=== PATIENT | female | born 1985 | race Caucasian/White ===

== ENCOUNTER → 2020-04-30 09:28 | Outpatient (CLI) | payer OTHER, SELFPAY ==
[2020-04-30 10:21] LABS: Add Manual Diff / Slide Review NO; Basophils Absolute Auto 0 /uL (0-100); Basophils Percent Auto 0.7 % (0-2); Eosinophils Absolute Auto 100 /uL (0-450); Hematocrit 39.3 % (36-46); Lymphocytes Absolute Auto 2200 /uL (1100-4500); Lymphocytes Percent Auto 32.9 % (25-40); Mean Corpuscular HGB Conc 33.2 % (30-36); Mean Corpuscular Hemoglobin 28.4 PG (26-34); Mean Corpuscular Volume 85.5 fL (80-100); Monocytes Absolute Auto 500 /uL (0-900); Monocytes Percent Auto 7.2 % (3-14); Neutrophils Absolute Auto 3800 /uL (1500-7000); Neutrophils Percent Auto 57.2 % (50-75); Platelet Count 252 X10^3/uL (150-400); Red Blood Cell Count 4.59 X10^6/uL (4.0-5.2); Red Cell Distribution Width 13.8 % (11.6-14.8); White Blood Cell Count 6.7 X10^3/uL (4.5-11.0)
[2020-04-30 10:39] LABS: Alanine Aminotransferase 42 IU/L (<35); Albumin 4.7 g/dL (3.5-5.0); Albumin Globulin Ratio 1.6 (1.0-2.8); Alkaline Phosphatase 113 U/L (38-126); Aspartate Aminotransferase 32 IU/L (14-36); BUN Creatinine Ratio 16.9 (6-22); Bilirubin Total 0.4 mg/dL (0.2-1.3); Blood Urea Nitrogen 14 mg/dL (7-17); Calcium 9.6 mg/dL (8.4-10.2); Carbon Dioxide 27 mmol/L (22-32); Chloride 105 mmol/L (98-107); Estimated Glomerular Filt Rate > 60.0 mL/min (>60); Glucose 97 mg/dL (70-100); HEMOLYSIS < 15 (0-50); Lipase 48 U/L (23-300); Potassium 4.5 mmol/L (3.4-5.1); Sodium 139 mmol/L (137-145); Total Protein 7.7 g/dL (6.3-8.2)
[2020-05-15 11:00] LABS: Urea Breath Test >18YRS NEGATIVE
== END ==
PROVIDERS: PCP Registered Nurse; Referring Provider Registered Nurse; Visit Provider Registered Nurse
DX: R10.9 Unspecified abdominal pain (principal); R14.2 Eructation; R53.83 Other fatigue
CPT/HCPCS: 36415; 80053; 83013; 83690; 85025

== ENCOUNTER → 2020-05-05 07:33 | Outpatient (CLI) | payer OTHER, SELFPAY ==
--- NOTE | 2020-05-05 07:34 | DI.US.S_ITS ---
PROCEDURE: US ABDOMEN COMPLETE INDICATIONS: PAIN TECHNIQUE: Real-time scanning was performed of the abdominal and retroperitoneal organs, with image documentation. COMPARISON: None. FINDINGS: Liver: Liver is normal in size and homogeneous in echotexture. Gallbladder: No gallstones identified. Normal gallbladder wall. No pericholecystic fluid. Negative sonographic Wilson sign. Biliary ducts: Intrahepatic bile ducts are non-dilated. Extrahepatic bile duct caliber measures 4.0 mm. Normal is 6-7 mm or less in diameter, or 10 mm or less post-cholecystectomy. Pancreas: Visualized portions of the pancreas are sonographically normal. Spleen: Spleen is normal in size and homogeneous in echotexture. Kidneys: Kidneys are normal in size and echotexture. Right kidney measures 10.8 cm long; left kidney measures 10.8 cm long. No hydronephrosis or nephrolithiasis. No solid masses. Aorta: Visualized aorta is normal in caliber at less than 3 cm. Iliacs: Proximal common iliac arteries are normal in caliber at less than 2.5 cm. IVC: Intrahepatic inferior vena cava is patent. Miscellaneous: No free abdominal fluid. IMPRESSION: No source for abdominal pain identified. Dictated by: Gerardo Perez [facility] Interpreted: Yobani Bateman MD on 05/05/2020 at 10:28 Approved by: Yobani Bateman M.D. on 05/05/2020 at 15:45
== END ==
PROVIDERS: PCP Registered Nurse; Referring Provider Registered Nurse; Visit Provider Registered Nurse
DX: R10.9 Unspecified abdominal pain (principal); R14.2 Eructation
CPT/HCPCS: 76700

== ENCOUNTER 2022-01-30 09:58 | Emergency (ER) | payer OTHER, SELFPAY ==
[2022-01-30] VITALS (15 sets, daily range): BP systolic 127–165; BP diastolic 62–86; PULSE 91–111; RESP 11–22; TEMP 37.7; O2SAT 97–100; BMI 40.0
--- NOTE | 2022-01-30 10:24 | DI.RAD.S_ITS ---
PROCEDURE: XR CHEST 2V INDICATIONS: shortness of breath TECHNIQUE: 2 views of the chest were acquired. COMPARISON: None. FINDINGS: Surgical changes and devices: None. Lungs and pleura: An incomplete inspiratory result is noted, causing a crowded appearance to the lung markings. No focal infiltrates are seen. Mild generalized interstitial prominence. No pneumothorax or significant pleural effusions are seen. Mediastinum: Mediastinal contours are normal. Heart size is normal. Bones and chest wall: No suspicious bony abnormalities. Soft tissues appear unremarkable. IMPRESSION: Mild generalized interstitial prominence is seen, which is likely artifactual, given the low lung volumes. However, differential diagnosis includes mild pulmonary edema and atypical/viral infiltrate. If clinically appropriate, a short-term followup chest series (with PA and lateral views) performed in deep inspiration is suggested for further evaluation. Dictated by: Ray Bass M.D. on 01/30/2022 at 9:59 Approved by: Ray Bass M.D. on 01/30/2022 at 10:01
[2022-01-30] MEDS: SODIUM CHLORIDE 0.9% 1,000 ML 1000 ML IV (10:30)
[2022-01-30 10:41] LABS: Add Manual Diff / Slide Review NO; Basophils Absolute Auto 0 /uL (0-100); Basophils Percent Auto 0.6 % (0-2); Eosinophils Absolute Auto 100 /uL (0-450); Eosinophils Percent Auto 1.9 % (2-4); Hematocrit 28.8 % (36-46); Hemoglobin 9.2 g/dL (12.0-16.0); Lymphocytes Absolute Auto 1400 /uL (1100-4500); Lymphocytes Percent Auto 19.9 % (25-40); Mean Corpuscular HGB Conc 32.1 % (30-36); Mean Corpuscular Hemoglobin 24.1 PG (26-34); Monocytes Absolute Auto 500 /uL (0-900); Monocytes Percent Auto 7.4 % (3-14); Neutrophils Absolute Auto 4900 /uL (1500-7000); Neutrophils Percent Auto 70.2 % (50-75); Platelet Count 341 X10^3/uL (150-400); Red Blood Cell Count 3.84 X10^6/uL (4.0-5.2); Red Cell Distribution Width 15.1 % (11.6-14.8)
[2022-01-30 11:00] LABS: Alanine Aminotransferase 27 IU/L (<35); Albumin 4.3 g/dL (3.5-5.0); Albumin Globulin Ratio 1.2 (1.0-2.8); Alkaline Phosphatase 105 U/L (38-126); Aspartate Aminotransferase 31 IU/L (14-36); BUN Creatinine Ratio 10.5 (6-22); Bilirubin Total 0.2 mg/dL (0.2-1.3); Blood Urea Nitrogen 8 mg/dL (7-17); Calcium 8.7 mg/dL (8.4-10.2); Carbon Dioxide 26 mmol/L (22-32); Chloride 104 mmol/L (98-107); Estimated Glomerular Filt Rate > 60 mL/min (>60); Globulin 3.6 g/dL (1.7-4.1); Glucose 111 mg/dL (70-100); HEMOLYSIS < 15 (0-50); Lipase 40 U/L (23-300); Potassium 3.7 mmol/L (3.4-5.1); Sodium 136 mmol/L (137-145); Total Protein 7.9 g/dL (6.3-8.2)
--- NOTE | 2022-01-30 11:01 | ED_ITS ---
HPI - SOB/Dyspnea General Chief Complaint: Shortness of Breath/Dyspnea Stated Complaint: cough getting worse exposed to walking pneu Time Seen by Provider: 01/30/22 10:50 Source: patient Mode of arrival: Ambulatory Limitations: no limitations History of Present Illness HPI Narrative: 36-year-old female who has no past medical history presenting today with 3 days of body aches cough and fever. She says last week she was exposed to somebody who had walking pneumonia. Now she overall does not feel good. She gets conversational dyspnea. She starts coughing nonproductive cough. She has not traveled anywhere she has some mild chest tightness. She overall does not feel well. He has had low-grade fever of 100. She is mildly tachycardic here. Related Data Previous Rx's Medication Instructions Recorded albuterol sulfate 90 mcg/actuation 2 puff INHALATION Q4-6H PRN #8.5 01/30/22 aerosol inhaler gram Allergies Allergy/AdvReac Type Severity Reaction Status Date / Time No Known Drug Allergies Allergy Verified 04/30/20 09:05 Review of Systems Review of Systems Narrative: GENERAL: See HPI HEENT: Denies sinus pain, ear pain, sore throat, difficulty swallowing, neck pain RESPIRATORY: See HPI CARDIOVASCULAR: Denies chest pain, palpitations, orthopnea, edema GASTROINTESTINAL: Denies nausea, vomiting, abdominal pain, diarrhea, constipation, melena. : Denies dysuria, frequency, incontinence, hematuria, urinary retention, flank pain. MUSCULOSKELETAL: Denies weakness, joint pain, or bony pain SKIN: No rash, no erythema, no pruritus NEUROLOGIC: Denies weakness, dizziness, headache, numbness, change in speech, confusion PSYCHIATRIC: No concerning psychosocial issues. 12 point review of systems is negative except for those stated above and HPI Patient History Social History Smoking Status: Never smoker Smoking Status: Never smoker Substance Use Type: does not use Exam Initial Vital Signs Initial Vital Signs: Vital Signs Temperature 99.8 F H 01/30/22 10:07 Pulse Rate 111 H 01/30/22 10:07 Respiratory Rate 20 01/30/22 10:07 Blood Pressure 132/82 01/30/22 10:07 Pulse Oximetry 98 01/30/22 10:07 GENERAL: Alert 36-year-old female appears to not feel well HEENT: Head atraumatic,EOMI, pupils reactive, face symmetric, moist mucous membranes CARDIOVASCULAR: Mildly tachycardic without murmur RESPIRATORY: Breath sounds equal bilaterally, no wheezes rales or rhonchi. ABDOMEN: Soft, nontender. Normoactive bowel sounds all 4 quadrants. No guardi ng or rebound. EXTREMITIES: Normal range of motion, no clubbing or edema. Neurovascularly intact NEUROLOGICAL: Alert and oriented x4.Normal gait and speech. Cranial nerves II through XII grossly intact. SKIN: Warm, dry, no laceration, no petechiae, no rashes or lesions. Course Orders Ordered: Discontinued Medications Albuterol/Ipratropium (Albuterol/Ipratropium 3 Ml Ampul) 3 ml INH NOW ONE Stop: 01/30/22 11:46 Last Admin: 01/30/22 12:01 Dose: 3 ml Documented by: YEIMY Sodium Chloride (Normal Saline 0.9%) 1,000 mls @ 1,000 mls/hr IV BOLUS ONE Stop: 01/30/22 11:23 Last Infusion: 01/30/22 11:51 Dose: 0 mls/hr Documented by: Admin: 01/30/22 10:30 Dose: 1,000 mls/hr Documented by: BRIAN Vital Signs Vital signs: Vital Signs - 8 hr 01/30/22 10:07 01/30/22 10:11 01/30/22 10:12 Temperature 99.8 F H Pulse Rate 111 H 110 H Respiratory Rate 20 22 Blood Pressure 132/82 132/82 Pulse Oximetry 98 98 98 01/30/22 10:30 01/30/22 11:02 01/30/22 11:04 Temperature 99.8 F H Pulse Rate 111 H 106 H 106 H Respiratory Rate 22 17 Blood Pressure 127/76 165/86 H Pulse Oximetry 97 99 01/30/22 11:30 01/30/22 11:31 01/30/22 12:00 Temperature Pulse Rate 91 H 94 H 92 H Respiratory Rate 17 11 L Blood Pressure 128/62 129/70 Pulse Oximetry 98 99 99 01/30/22 12:09 01/30/22 12:30 01/30/22 12:51 Temperature Pulse Rate 92 H 109 H 105 H Respiratory Rate 18 14 14 Blood Pressure 132/72 145/85 H Pulse Oximetry 98 98 97 01/30/22 13:00 01/30/22 13:30 01/30/22 14:00 Temperature Pulse Rate 102 H 96 H 96 H Respiratory Rate 14 Blood Pressure 147/84 H 152/80 H 156/75 H Pulse Oximetry 99 99 100 MDM - SOB/Dyspnea Lab Data Result diagrams: 01/30/22 10:27 01/30/22 10:27 Labs: Lab Results 01/30/22 01/30/22 01/30/22 Range/Units 10:26 10:27 10:27 WBC 7.0 (4.5-11.0) X10^3/uL RBC 3.84 L (4.0-5.2) X10^6/uL Hgb 9.2 L (12.0-16.0) g/dL Hct 28.8 L (36-46) % MCV 75.0 L (80-100) fL MCH 24.1 L (26-34) PG MCHC 32.1 (30-36) % RDW 15.1 H (11.6-14.8) % Plt Count 341 (150-400) X10^3/uL Neut % (Auto) 70.2 (50-75) % Lymph % (Auto) 19.9 L (25-40) % [place] % (Auto) 7.4 (3-14) % Eos % (Auto) 1.9 L (2-4) % Baso % (Auto) 0.6 (0-2) % Neut # (Auto) 4900 (2994-4277) /uL Lymph # (Auto) 1400 (8854-1705) /uL [place] # (Auto) 500 (0-900) /uL Eos # (Auto) 100 (0-450) /uL Baso # (Auto) 0 (0-100) /uL Sodium 136 L (137-145) mmol/L Potassium 3.7 (3.4-5.1) mmol/L Chloride 104 (98-107) mmol/L Carbon Dioxide 26 (22-32) mmol/L BUN 8 (7-17) mg/dL Creatinine 0.76 (0.52-1.04) mg/dL Estimated GFR > 60 (>60) mL/min BUN/Creatinine Ratio 10.5 (6-22) Glucose 111 H (70-100) mg/dL Lactate (0.7-2.1) mmol/L Calcium 8.7 (8.4-10.2) mg/dL Total Bilirubin 0.2 (0.2-1.3) mg/dL AST 31 (14-36) IU/L ALT 27 (<35) IU/L Alkaline Phosphatase 105 (38-126) U/L NT-Pro-B Natriuret Pep (<125) pg/mL Total Protein 7.9 (6.3-8.2) g/dL Albumin 4.3 (3.5-5.0) g/dL Globulin 3.6 (1.7-4.1) g/dL Albumin/Globulin Ratio 1.2 (1.0-2.8) Lipase 40 (23-300) U/L Procalcitonin 0.07 (<0.5) ng/mL Urine RBC (0-5/HPF) Urine WBC (0-5/HPF) Ur Squamous Epith Cells (0-5/HPF) Amorphous Sediment Urine Bacteria (None) Urine Mucus (Negative) Ur Culture Indicated? Urine Test (Negative) Chlamy pneumoniae PCR Not detected (Not Detect) Adenovirus (PCR) Not detected (Not Detect) B. pertussis DNA (PCR) Not detected (Not Detecte) B.parapertussis DNA PCR Not detected (Not Detecte) Coronavirus OC43 (PCR) Not detected (Not Detect) Coronavirus HKU1 (PCR) Not detected (Not Detect) Coronavirus 229E (PCR) Not detected (Not Detect) SARS-CoV-2 (PCR) Not detected (Not Detecte) Coronavirus NL63 (PCR) Not detected (Not Detect) Human Metapneumovir PCR Detected H (Not Detect) Influenza Type A (PCR) Not detected (Not Detect) Influenza Type B (PCR) Not detected (Not Detect) M. pneumoniae (PCR) Not detected (Not Detect) Parainfluenza 1 (PCR) Not detected (Not Detect) Parainfluenza 2 (PCR) Not detected (Not Detect) Parainfluenza 3 (PCR) Not detected (Not Detect) Parainfluenza 4 (PCR) Not detected (Not Detect) RSV (PCR) Not detected (Not Detect) Entero/Rhino (PCR) Not detected (Not Detect) 01/30/22 01/30/22 01/30/22 Range/Units 10:27 10:27 11:08 WBC (4.5-11.0) X10^3/uL RBC (4.0-5.2) X10^6/uL Hgb (12.0-16.0) g/dL Hct (36-46) % MCV (80-100) fL MCH (26-34) PG MCHC (30-36) % RDW (11.6-14.8) % Plt Count (150-400) X10^3/uL Neut % (Auto) (50-75) % Lymph % (Auto) (25-40) % [place] % (Auto) (3-14) % Eos % (Auto) (2-4) % Baso % (Auto) (0-2) % Neut # (Auto) (6087-3952) /uL Lymph # (Auto) (1441-7893) /uL [place] # (Auto) (0-900) /uL Eos # (Auto) (0-450) /uL Baso # (Auto) (0-100) /uL Sodium (137-145) mmol/L Potassium (3.4-5.1) mmol/L Chloride (98-107) mmol/L Carbon Dioxide (22-32) mmol/L BUN (7-17) mg/dL Creatinine (0.52-1.04) mg/dL Estimated GFR (>60) mL/min BUN/Creatinine Ratio (6-22) Glucose (70-100) mg/dL Lactate 1.2 (0.7-2.1) mmol/L Calcium (8.4-10.2) mg/dL Total Bilirubin (0.2-1.3) mg/dL AST (14-36) IU/L ALT (<35) IU/L Alkaline Phosphatase (38-126) U/L NT-Pro-B Natriuret Pep 37 (<125) pg/mL Total Protein (6.3-8.2) g/dL Albumin (3.5-5.0) g/dL Globulin (1.7-4.1) g/dL Albumin/Globulin Ratio (1.0-2.8) Lipase (23-300) U/L Procalcitonin (<0.5) ng/mL Urine RBC 10-30/hpf H (0-5/HPF) Urine WBC 0-1/hpf (0-5/HPF) Ur Squamous Epith Cells 1-5 /hpf (0-5/HPF) Amorphous Sediment 1+ Urine Bacteria Few (2-10) H (None) Urine Mucus 1+ H (Negative) Ur Culture Indicated? Specimen cultured Urine Test (Negative) Chlamy pneumoniae PCR (Not Detect) Adenovirus (PCR) (Not Detect) B. pertussis DNA (PCR) (Not Detecte) B.parapertussis DNA PCR (Not Detecte) Coronavirus OC43 (PCR) (Not Detect) Coronavirus HKU1 (PCR) (Not Detect) Coronavirus 229E (PCR) (Not Detect) SARS-CoV-2 (PCR) (Not Detecte) Coronavirus NL63 (PCR) (Not Detect) Human Metapneumovir PCR (Not Detect) Influenza Type A (PCR) (Not Detect) Influenza Type B (PCR) (Not Detect) M. pneumoniae (PCR) (Not Detect) Parainfluenza 1 (PCR) (Not Detect) Parainfluenza 2 (PCR) (Not Detect) Parainfluenza 3 (PCR) (Not Detect) Parainfluenza 4 (PCR) (Not Detect) RSV (PCR) (Not Detect) Entero/Rhino (PCR) (Not Detect) 01/30/22 Range/Units 11:09 WBC (4.5-11.0) X10^3/uL RBC (4.0-5.2) X10^6/uL Hgb (12.0-16.0) g/dL Hct (36-46) % MCV (80-100) fL MCH (26-34) PG MCHC (30-36) % RDW (11.6-14.8) % Plt Count (150-400) X10^3/uL Neut % (Auto) (50-75) % Lymph % (Auto) (25-40) % [place] % (Auto) (3-14) % Eos % (Auto) (2-4) % Baso % (Auto) (0-2) % Neut # (Auto) (2114-1048) /uL Lymph # (Auto) (9334-5554) /uL [place] # (Auto) (0-900) /uL Eos # (Auto) (0-450) /uL Baso # (Auto) (0-100) /uL Sodium (137-145) mmol/L Potassium (3.4-5.1) mmol/L Chloride (98-107) mmol/L Carbon Dioxide (22-32) mmol/L BUN (7-17) mg/dL Creatinine (0.52-1.04) mg/dL Estimated GFR (>60) mL/min BUN/Creatinine Ratio (6-22) Glucose (70-100) mg/dL Lactate (0.7-2.1) mmol/L Calcium (8.4-10.2) mg/dL Total Bilirubin (0.2-1.3) mg/dL AST (14-36) IU/L ALT (<35) IU/L Alkaline Phosphatase (38-126) U/L NT-Pro-B Natriuret Pep (<125) pg/mL Total Protein (6.3-8.2) g/dL Albumin (3.5-5.0) g/dL Globulin (1.7-4.1) g/dL Albumin/Globulin Ratio (1.0-2.8) Lipase (23-300) U/L Procalcitonin (<0.5) ng/mL Urine RBC (0-5/HPF) Urine WBC (0-5/HPF) Ur Squamous Epith Cells (0-5/HPF) Amorphous Sediment Urine Bacteria (None) Urine Mucus (Negative) Ur Culture Indicated? Urine Test Negative (Negative) Chlamy pneumoniae PCR (Not Detect) Adenovirus (PCR) (Not Detect) B. pertussis DNA (PCR) (Not Detecte) B.parapertussis DNA PCR (Not Detecte) Coronavirus OC43 (PCR) (Not Detect) Coronavirus HKU1 (PCR) (Not Detect) Coronavirus 229E (PCR) (Not Detect) SARS-CoV-2 (PCR) (Not Detecte) Coronavirus NL63 (PCR) (Not Detect) Human Metapneumovir PCR (Not Detect) Influenza Type A (PCR) (Not Detect) Influenza Type B (PCR) (Not Detect) M. pneumoniae (PCR) (Not Detect) Parainfluenza 1 (PCR) (Not Detect) Parainfluenza 2 (PCR) (Not Detect) Parainfluenza 3 (PCR) (Not Detect) Parainfluenza 4 (PCR) (Not Detect) RSV (PCR) (Not Detect) Entero/Rhino (PCR) (Not Detect) Urine Dip Bedside Urine Glucose Negative Bedside Urine Bilirubin - Negative Bedside Urine Ketone +/- 5 Urine Specific [place] 1.015 Bedside Urine Occult Blood +++ Bedside Urine pH 7.5 Bedside Urine Protein - Negative Bedside Urine Urobilinogen - Negative Bedside Urine Nitrite - Negative Bedside Urine Leukocytes - Negative Esterase Imaging Data Chest x-ray: Radiologist's Impression: Signed Patient: Anna Cole MR#: [id number] : 1985 Acct:[id number] Age/Sex: 36 / F Date of Service: 01/30/22 Loc: ED Accession Number: [id number] ?? Procedure: XR chest 2V Ordering Provider: Veronica Prakash D.O. PROCEDURE:? XR CHEST 2V ? INDICATIONS:? shortness of breath ? TECHNIQUE:? 2 views of the chest were acquired.? ? COMPARISON:? None. ? FINDINGS:? ? Surgical changes and devices:? None.? ? Lungs and pleura:? An incomplete inspiratory result is noted, causing a crowded appearance to the lung markings.? No focal infiltrates are seen.? Mild generalized interstitial prominence.? No pneumothorax or significant pleural effusions are seen. ? ? Mediastinum:? Mediastinal contours are normal.? Heart size is normal.? ? Bones and chest wall:? No suspicious bony abnormalities.? Soft tissues appear unremarkable.? IMPRESSION:? Mild generalized interstitial prominence is seen, which is likely artifactual, given the low lung volumes.? However, differential diagnosis includes mild pulmonary edema and atypical/viral infiltrate. ? If clinically appropriate, a short-term followup chest series (with PA and lateral views) performed in deep inspiration is suggested for further evaluation.? ? ? Dictated by: Ray Bass M.D. on 01/30/2022 at 9:59 ? ? ECG Data Interpretation: Sinus rhythm rate 104 ID interval 134 QRS [address] changes no S-wave Q- wave is noted in lead 3 and AVF MDM Narrative Medical decision making narrative: Patient presents with fever cough upper respiratory like symptoms. Initially low-grade fever and tachycardic. Sepsis orders are put in but she is not hypertensive. Respiratory panel was done however lab lost it there was delay in results. Patient received albuterol treatment here in the emergency department she overall is feeling significantly better afterwards. No evidence of hypoxia. Unlikely to be pulmonary embolism or other etiology. She has infectious like symptoms. Most consistent with respiratory illness. The cecilia panel is positive. No need for antibiotics or admission at this time. Discharge Plan Departure Patient Disposition: Home Clinical Impression: Upper respiratory infection, Anemia, Belching symptom Instructions: DI for Viral Upper Respiratory Infection -- Adult Activity Restrictions/Additional Instructions: *You have been diagnosed with upper respiratory infection Human Metapneumovirus *What to do: Sorry your test got lost in the lab and took so long today. You have a viral infection. No indication for antibiotics at this time. Recommend increasing your fluid intake fever control as needed and monitoring. you may eat as tolerated. You are also noted to be mildly anemic. Please have your blood levels rechecked with her primary care provider. And have a further workup. At this time no indication for blood transfusion. *Continue to take medications as directed Albuterol inhaler 1-2 puffs every 4-6 hours if needed for cough sent to [facility] in [place] *Follow up with your primary care provider in 2-3 days or call [phone] *Return to ER if you should have increasing shortness of breath, confusion, ch est pain or any new, worsening or concerning symptoms Prescriptions: New albuterol sulfate 90 mcg/actuation HFA aerosol inhaler 2 puff INHALATION Q4-6H PRN (Reason: shortness of breath or wheezing) Qty: 8.5 0RF Referrals: Hiwot Zamora ARNP [Primary Care Provider] -
[2022-01-30 11:15] LABS: Procalcitonin 0.07 ng/mL (<0.5)
[2022-01-30 11:21] LABS: Pregnancy Test Urine Negative (Negative)
[2022-01-30 11:28] LABS: Amorphous Sediment Urine 1+; Bacteria Urine Few (2-10); RBC Urine 10-30/HPF (0-5/HPF); Squamous Epithelial Cell Urine 1-5 /HPF (0-5/HPF); WBC Urine 0-1/HPF (0-5/HPF)
[2022-01-30 11:29] LABS: Culture Indicated Urine Specimen Cultured; Mucus Urine 1+ (Negative)
[2022-01-30 11:46] LABS: Lactate (Lactic Acid) 1.2 mmol/L (0.7-2.1)
[2022-01-30] MEDS: ALBUTEROL/IPRATROPIUM 3 ML AMPUL INH (12:01)
[2022-01-30 12:04] LABS: NT-proBNP (BNP-Adult 18+) 37 pg/mL (<125)
--- NOTE | 2022-01-30 13:25 | PC.NURSE ---
called lab between [id number] to verify resp panel results not available and cant tell if its running. informed it is running now. called lab [id number] and informed resp panel running and will take another 45 minutes for results.
[2022-01-30 14:23] LABS: Adenovirus Not Detected (Not Detect); B. parapertussis Not Detected (Not Detecte); Bordetella pertussis Not Detected (Not Detecte); Chlamydophila pneumoniae Not Detected (Not Detect); Coronavirus 229E Not Detected (Not Detect); Coronavirus HKU1 Not Detected (Not Detect); Coronavirus NL 63 Not Detected (Not Detect); Coronavirus OC43 Not Detected (Not Detect); Human Metapneumovirus Detected (Not Detect); Human Rhinovirus/Enterovirus Not Detected (Not Detect); Influenza A Not Detected (Not Detect); Influenza B Not Detected (Not Detect); Mycoplasma pneumoniae Not Detected (Not Detect); Parainfluenza Virus 1 Not Detected (Not Detect); Parainfluenza Virus 2 Not Detected (Not Detect); Parainfluenza Virus 3 Not Detected (Not Detect); Parainfluenza Virus 4 Not Detected (Not Detect); Respiratory Syncytial Virus Not Detected (Not Detect); SARS- CoV-2 Not Detected (Not Detecte)
== END 2022-01-30 14:37 | disposition home or self-care (01) ==
PROVIDERS: Emergency Provider Emergency Medicine; PCP Registered Nurse
DX: J06.9 Acute upper respiratory infection, unspecified (principal); D64.9 Anemia, unspecified; R14.2 Eructation; R50.9 Fever, unspecified; Z20.822 Contact with and (suspected) exposure to COVID-19
CPT/HCPCS: 36415; 71046; 80053; 81003; 81015; 81025; 83605; 83690; 83880; 84145; 85025; 87040; 87086; 87633; 93005; 94640; 99284

== ENCOUNTER → 2022-04-01 07:15 | Outpatient (CLI) | payer OTHER, SELFPAY ==
[2022-04-01 08:14] LABS: Appearance Urine UA CLEAR; Bilirubin Urine UA NEGATIVE (NEGATIVE); Color Urine UA YELLOW; Glucose Urine UA NEGATIVE (Negative); Ketones Urine UA TRACE (NEGATIVE); Leukocyte Esterase Urine UA NEGATIVE (NEGATIVE); Nitrite Urine UA NEGATIVE (Negative); Occult Blood Urine UA 1+ (Negative); Protein Urine UA NEGATIVE (Negative); Urobilinogen Urine UA 0.2 E.U./dL (0.2); pH Urine UA 5.5 (4.5-8.0)
[2022-04-01 08:25] LABS: Amorphous Sediment Urine 1+; Bacteria Urine Moderate (10-30); RBC Urine 1-5/HPF (0-5/HPF); Squamous Epithelial Cell Urine 10-30 /HPF (0-5/HPF); WBC Urine 0-1/HPF (0-5/HPF)
[2022-04-01 08:26] LABS: Culture Indicated Urine Cult Not Indicated
[2022-04-01 08:45] LABS: Add Manual Diff / Slide Review NO; Basophils Absolute Auto 0 /uL (0-100); Basophils Percent Auto 0.6 % (0-2); Eosinophils Absolute Auto 600 /uL (0-450); Eosinophils Percent Auto 7.2 % (2-4); Hematocrit 37.5 % (36-46); Hemoglobin 12.6 g/dL (12.0-16.0); Lymphocytes Absolute Auto 2800 /uL (1100-4500); Lymphocytes Percent Auto 35.2 % (25-40); Mean Corpuscular HGB Conc 33.6 % (30-36); Mean Corpuscular Hemoglobin 28.9 PG (26-34); Mean Corpuscular Volume 86.2 fL (80-100); Monocytes Absolute Auto 500 /uL (0-900); Monocytes Percent Auto 6.2 % (3-14); Neutrophils Absolute Auto 4000 /uL (1500-7000); Neutrophils Percent Auto 50.8 % (50-75); Platelet Count 254 X10^3/uL (150-400); Red Blood Cell Count 4.35 X10^6/uL (4.0-5.2); Red Cell Distribution Width 20.3 % (11.6-14.8); White Blood Cell Count 7.9 X10^3/uL (4.5-11.0)
[2022-04-01 09:02] LABS: Anisocytosis 1+; HEMOLYSIS < 15 (0-50); Iron 109 ug/dL (37-170)
[2022-04-01 09:13] LABS: Percent Iron Saturation 30 % (15-50); Total Iron Binding Capacity 366 ug/dL (265-497); Transferrin 277 mg/dL (206-381)
[2022-04-01 09:38] LABS: Ferritin 23 ng/mL (6-137)
== END ==
PROVIDERS: PCP Registered Nurse Diabetes Educator; Referring Provider Registered Nurse Diabetes Educator; Visit Provider Registered Nurse Diabetes Educator
DX: D64.9 Anemia, unspecified (principal); R31.29 Other microscopic hematuria
CPT/HCPCS: 36415; 81001; 82728; 83540; 83550; 85025

== ENCOUNTER 2023-08-14 18:15 | Emergency (ER) | payer OTHER, SELFPAY ==
[2023-08-14 18:21] VITALS: BP 187/88; PULSE 117; RESP 18; TEMP 37; O2SAT 99; BMI 35.4
--- NOTE | 2023-08-14 18:32 | DI.US.S_ITS ---
PROCEDURE: US PELVIC COMPLETE INDICATIONS: vag bleeding x 3 months, worse x 3 days. TECHNIQUE: Real-time scanning was performed of the pelvic organs, with image documentation. Additional endovaginal scanning was necessary due to incomplete visualization of the adnexal and endometrial structures by transabdominal scanning. COMPARISON: None. FINDINGS: Uterus: Uterus is anteverted and normal in size at 9.1 x 5.0 x 5.3 cm. The myometrium is homogeneous. The endometrium measures 10 mm combined thickness. Vascularity within the endometrium appears mildly increased. Ovaries: Right ovary is not visualized. No right adnexal mass. The left ovary measures 2.6 x 1.3 x 2.1 cm, with a calculated ovarian volume of 3.9 cc. The ovaries have a normal sonographic appearance. Less than 12 follicles can be seen in the left ovary. No adnexal masses are seen. Other: No pathologic free abdominal or pelvic fluid. IMPRESSION: 1. Nonspecific increased vascularity within the endometrium. No definite source for vaginal bleeding identified. 2. Right ovary is not visualized. Approved by: Reji Mckinley M.D. on 08/14/2023 at 19:40
[2023-08-14 19:31] LABS: Hematocrit 30.3 % (36-46); Hemoglobin 10.1 g/dL (12.0-16.0)
[2023-08-14 19:32] VITALS: BP 163/87; PULSE 110; RESP 16; O2SAT 97
[2023-08-14 19:38] LABS: Pregnancy Test Serum,Qual Negative (Negative)
--- NOTE | 2023-08-14 19:43 | ED_ITS ---
HPI - General Adult General Chief complaint: Urogenital-Female Stated complaint: heavy bleeding3-4 months/ rash on hands Time Seen by Provider: 08/14/23 18:37 Source: patient Mode of arrival: Ambulatory History of Present Illness HPI narrative: 37-year-old female who states that there has been some concern about history of PCOS. She is not currently on any control. She is been bleeding for the past several weeks/months. She states that today she started to develop a rash on her hands after using a tampon. No fevers. Urinary symptoms. No change in bowel habits. No nausea or vomiting. Related Data Previous Rx's Medication Instructions Recorded albuterol sulfate 90 mcg/actuation 2 puff inhalation Q4-6H PRN 01/30/22 aerosol inhaler shortness of breath or wheezing #8.5 grams ferrous sulfate 325 mg (65 mg 325 mg PO DAILY #90 tabs 04/19/22 iron) tablet Allergies Allergy/AdvReac Type Severity Reaction Status Date / Time No Known Drug Allergies Allergy Verified 06/30/22 15:56 Review of Systems Constitutional Constitutional: Reports system reviewed and no additional complaints, except as documented Cardiovascular Cardiovascular: Reports system reviewed and no additional complaints, except as documented Respiratory Respiratory: Reports system reviewed and no additional complaints, except as documented Gastrointestinal Gastrointestinal: Reports system reviewed and no additional complaints, except as documented Genitourinary Genitourinary: Reports system reviewed and no additional complaints, except as documented Patient History Social History Smoking Status: Never smoker Smoking Status: Never smoker Substance Use Type: does not use Exam Initial Vital Signs Initial Vital Signs: Vital Signs Temperature 98.6 F 08/14/23 18:21 Pulse Rate 117 H 08/14/23 18:21 Respiratory Rate 18 08/14/23 18:21 Blood Pressure 187/88 H 08/14/23 18:21 Pulse Oximetry 99 08/14/23 18:21 Oxygen Delivery Method Room Air 08/14/23 18:21 Resp Effort & Inspection: normal respiratory effort Cardio Rate: regular rate GI Inspection: normal to inspection and non-distended Skin Other: Patient does have what appears to be a superficial rash on the dorsum of both of her hands in between the thumb and the index finger. There are no vesicles. No pustules. No urticaria. Course Orders Ordered: ED Orders 08/14/23 18:32 US pelvic complete Stat 08/14/23 19:15 Hemoglobin and Hematocrit Stat Test Serum,Qual Stat Vital Signs Vital signs: Vital Signs - 8 hr 08/14/23 18:21 08/14/23 19:32 Temperature 98.6 F Pulse Rate 117 H 110 H Respiratory Rate 18 16 Blood Pressure 187/88 H 163/87 H Pulse Oximetry 99 97 Oxygen Delivery Method Room Air Room Air Medical Decision Making Lab Data Lab results reviewed: Yes I reviewed the patient's lab results. 08/14/23 19:15 Labs: Lab Results 08/14/23 Range/Units 19:15 Hgb 10.1 L (12.0-16.0) g/dL Hct 30.3 L (36-46) % Serum , Qual Negative (Negative) Imaging Data US - ADHESIVE BONDING MACHINE OPERATOR: Radiologist's Impression: PROCEDURE: US PELVIC COMPLETE INDICATIONS: vag bleeding x 3 months, worse x 3 days. TECHNIQUE: Real-time scanning was performed of the pelvic organs, with image documentation. Additional endovaginal scanning was necessary due to incomplete visualization of the adnexal and endometrial structures by transabdominal scanning. COMPARISON: None. FINDINGS: Uterus: Uterus is anteverted and normal in size at 9.1 x 5.0 x 5.3 cm. The myometrium is homogeneous. The endometrium measures 10 mm combined thickness. Vascularity within the endometrium appears mildly increased. Ovaries: Right ovary is not visualized. No right adnexal mass. The left ovary measures 2.6 x 1.3 x 2.1 cm, with a calculated ovarian volume of 3.9 cc. The ovaries have a normal sonographic appearance. Less than 12 follicles can be seen in the left ovary. No adnexal masses are seen. Other: No pathologic free abdominal or pelvic fluid. IMPRESSION: 1. Nonspecific increased vascularity within the endometrium. No definite source for vaginal bleeding identified. 2. Right ovary is not visualized. MDM Narrative Medical decision making narrative: Not anemic to the point that would require any blood transfusion. Pelvic ultrasound today is relatively unremarkable. test is negative. Unsure of the exact etiology of the rash on her hands. Low suspicion for allergic reaction. Recommended that she use some topical creams for this. Will discharge patient home with instructions to contact her primary doctor for follow-up. I do recommend that she contact a barrer and tacker for follow-up as well. She was given return precautions. He expressed understanding and agreement. Discharge Plan Departure Patient Disposition: Home Clinical Impression: Abnormal vaginal bleeding Instructions: DI for Vaginal Bleeding Activity Restrictions/Additional Instructions: I do recommend that tomorrow morning you contact your primary doctor and also the forest pathologist provider at the number provided below for a follow-up. You can use some topical steroid cream over the rash on your hands. Return to the emergency department for new symptoms. Prescriptions: No Action ferrous sulfate 325 mg (65 mg iron) tablet 325 mg PO DAILY Qty: 90 1RF albuterol sulfate 90 mcg/actuation HFA aerosol inhaler 2 puff INHALATION Q4-6H PRN (Reason: shortness of breath or wheezing) Qty: 8.5 0RF Referrals: Pastora Del Rio MD [Physician] - Anil Brooks ARNP [Primary Care Provider] - Stand Alone Forms: Patient Portal/API
== END 2023-08-14 20:07 | disposition home or self-care (01) ==
PROVIDERS: Emergency Provider Emergency Medicine; PCP Registered Nurse Diabetes Educator
DX: N93.9 Abnormal uterine and vaginal bleeding, unspecified (principal)
CPT/HCPCS: 36415; 76856; 84703; 85014; 85018; 99282; 99284

== ENCOUNTER → 2023-08-17 09:27 | Outpatient (CLI) | payer OTHER, SELFPAY ==
[2023-08-17 10:23] LABS: Add Manual Diff / Slide Review NO; Basophils Absolute Auto 0 /uL (0-100); Basophils Percent Auto 0.2 % (0-2); Eosinophils Absolute Auto 1000 /uL (0-450); Eosinophils Percent Auto 10.6 % (2-4); Hematocrit 28.1 % (36-46); Hemoglobin 9.3 g/dL (12.0-16.0); Lymphocytes Absolute Auto 2400 /uL (1100-4500); Lymphocytes Percent Auto 25.5 % (25-40); Mean Corpuscular HGB Conc 33.1 % (30-36); Mean Corpuscular Hemoglobin 29.4 PG (26-34); Mean Corpuscular Volume 88.8 fL (80-100); Monocytes Absolute Auto 500 /uL (0-900); Monocytes Percent Auto 5.4 % (3-14); Neutrophils Absolute Auto 5400 /uL (1500-7000); Neutrophils Percent Auto 58.3 % (50-75); Platelet Count 306 X10^3/uL (150-400); Red Blood Cell Count 3.17 X10^6/uL (4.0-5.2); White Blood Cell Count 9.2 X10^3/uL (4.5-11.0)
[2023-08-17 10:25] LABS: HEMOLYSIS < 15 (0-50); Iron 149 ug/dL (37-170)
[2023-08-17 10:37] LABS: Percent Iron Saturation 44 % (15-50); Total Iron Binding Capacity 335 ug/dL (265-497); Transferrin 280 mg/dL (206-381)
[2023-08-17 10:56] LABS: TSH w/ Reflex to FT4 0.76 uIU/mL (0.47-4.68)
[2023-08-17 11:02] LABS: Ferritin 14 ng/mL (6-137); Testosterone 35.8 ng/dL (5.71-77.0)
[2023-08-17 11:18] LABS: Follicle Stimulating Hormone 4.04 mIU/mL; Luteinizing Hormone 1.76 mIU/mL; Progesterone, Total 1.14 ng/mL
[2023-08-17 11:33] LABS: Estradiol, Total 48.1 pg/mL
[2023-08-19 16:32] LABS: Estrogen 225 pg/mL (.)
== END ==
PROVIDERS: PCP Registered Nurse Diabetes Educator; Referring Provider Physician Assistant; Visit Provider Physician Assistant
DX: N93.9 Abnormal uterine and vaginal bleeding, unspecified (principal); E28.2 Polycystic ovarian syndrome; R63.5 Abnormal weight gain; R53.83 Other fatigue; D50.9 Iron deficiency anemia, unspecified; N92.6 Irregular menstruation, unspecified; N92.0 Excessive and frequent menstruation with regular cycle
CPT/HCPCS: 36415; 82627; 82670; 82672; 82728; 83001; 83002; 83540; 83550; 84144; 84403; 84443; 85025

== ENCOUNTER 2023-10-05 07:59 | Day surgery (SDC) | payer OTHER, SELFPAY ==
[2023-09-28 08:16] VITALS: BMI 38.4
[2023-10-05] VITALS (10 sets, daily range): BP systolic 120–152; BP diastolic 60–83; PULSE 75–101; RESP 12–20; TEMP 35.5–36.6; O2SAT 92–97; BMI 38.4; BMI 38.8
--- NOTE | 2023-10-05 | PATH_ITS ---
[facility] Accession Number: [id number] No. of containers..01 Tissue . 01 Material submitted: . uterus - UTERUS,CERVIX AND BILATERAL FALLOPIAN TUBES . 01 Diagnosis: A. Uterine, Cervix, Bilateral Fallopian Tubes, Hysterectomy and Bilateral Salpingectomy: Late proliferative/early secretory endometrium. Serosa within normal limits. Myometrium within normal limits. Cervix with inflammation and reactive change. Bilateral fallopian tubes within normal limits. No evidence of neoplasia, dysplasia, and malignancy. [facility] 10/11/2023 0532 Local . 01 Electronically signed: . Luz Elena Santizo MD, Pathologist NPI- [id number] . 01 Gross description: . The specimen was received in formalin, labeled with the patient's name, , and uterus, cervix, and bilateral fallopian tubes, and consists of a fragmented uterus (121 g and aggregating to 10.2 x 7.5 x 5.2 cm) with detached cervix (3.2 x 1.9 cm), and two unoriented, fimbriae fallopian tubes (5.6 x 0.8 cm and 4.8 x 1.0 cm, respectively) with no additional adnexa identified. The cervix is previously incised with figueroa, wrinkled ectocervix and a slit-like os re-approximated to measure 0.6 cm in diameter. The paracervical margin is inked blue. The serosa is figueroa and smooth with no evidence of hemorrhage or adhesion identified. The attached segment of endocervical canal measures 1.3 cm in length and has figueroa herringbone mucosa. The intact portion of endometrial cavity measures 2.9 cm from cornu to cornu and 2.1 cm in length with pink, velvety endometrium that averages 0.3 cm thick with no lesions identified. The myometrium is pale figueroa and trivascular architecture, measuring up to 2.4 cm in maximum thickness with no nodules or lesions identified. . Both tubes have violaceous, smooth serosa with cystic structures measuring up to 0.5 cm in greatest dimension filled with cloudy serous fluid. Sectioning reveals unremarkable stellate lumens. . Evaluation Manager sections are submitted as follows: A1: Cervix. A2-A3: Full-thickness sections. A4: Serosa. A5: Longer fallopian tube to include one-half of bisected fimbriae and cross sections. A6: Paoli fallopian tube to include one-half of bisected fimbriae and cross sections. ([id number]) /FRR 10/07/2023 1546 Local . 01 Pathologist provided ICD-10: N92.1 . 01 CPT . 783926 Specimen Comment: A courtesy copy of this report has been sent to [phone] Performed at: 01 [facility] [address] [place] [address] Suite [facility][note 3], [place], [place] [id number] MD Twan Gallegos MD Phone: [phone]
[2023-10-05] MEDS: LACTATED RINGERS 1,000 ML 42 ML IV ×2 (08:45→11:31)
[2023-10-05 09:28] LABS: Add Manual Diff / Slide Review NO; Basophils Absolute Auto 100 /uL (0-100); Basophils Percent Auto 0.9 % (0-2); Eosinophils Absolute Auto 100 /uL (0-450); Eosinophils Percent Auto 1.4 % (2-4); Hematocrit 38.7 % (36-46); Hemoglobin 12.9 g/dL (12.0-16.0); Lymphocytes Absolute Auto 1800 /uL (1100-4500); Lymphocytes Percent Auto 24.2 % (25-40); Mean Corpuscular HGB Conc 33.3 % (30-36); Mean Corpuscular Hemoglobin 28.1 PG (26-34); Mean Corpuscular Volume 84.6 fL (80-100); Monocytes Absolute Auto 500 /uL (0-900); Monocytes Percent Auto 6.2 % (3-14); Neutrophils Absolute Auto 5100 /uL (1500-7000); Neutrophils Percent Auto 67.3 % (50-75); Platelet Count 272 X10^3/uL (150-400); Red Blood Cell Count 4.58 X10^6/uL (4.0-5.2); Red Cell Distribution Width 14.3 % (11.6-14.8); White Blood Cell Count 7.5 X10^3/uL (4.5-11.0)
--- NOTE | 2023-10-05 10:06 | PM.PREOP ---
Pre-operative Note COVID-19 COVID-19 status: Not tested Interval Note History & Physical reviewed/Exam performed by Physician: Yes Changes to H&P: No
[2023-10-05] MEDS: CEFAZOLIN 2 GM/100 ML PREMIX 100 ML IV (10:20)
--- NOTE | 2023-10-05 11:28 | SUR.OPER ---
Lithotomy on padded OR bed. [place] Pad Positioner under torso. Head on pillow, arms padded and tucked at sides. Legs secured in padded yellow fins stirrups.
[2023-10-05] MEDS: BUPIVACAINE 0.5% (PF) 30 ML, EPINEPHrine 0.15 MG INJ (11:32)
[2023-10-05] MEDS: ROPIVACAINE 0.2% PF 2 MG/ML 10ML AMP 20 ML INJ (11:33)
--- NOTE | 2023-10-05 13:08 | PM.GYNOP.1 ---
Operative Date/Time/Diagnoses Date of procedure: 10/05/23 Time of procedure: 10:20 Pre-op diagnosis: Menometrorrhagia Iron-deficiency anemia Post-op diagnosis: same Procedure & Clinicians Procedure: Procedures Operation Date: 10/05/23 09:45 Actual Procedure Side Surgeon p Laparoscopic Total Hysterectomy with bilateral salpingectomy Fransico Garcia MD Indications: Anna is a 37-year-old G0, LMP from February 2023 until 08/19, who presents with greater than 15 year history of progressively severe menometrorrhagia. Patient is nulligravid by choice and does not wish to have children now or in the future. She experienced menarche at age 13-14 and initially had regular predictable menses while she was in high school. Her weight at that time was 105 lb. When she went to college and afterwards she began to gain weight and her periods began to become unpredictable and chaotic. Treatment with oral contraceptives was of no benefit. Patient has been offered IUD in the past and declined because of complications that her sister had with an IUD. She is similarly not interested in Depo-Provera because of concerns regarding weight gain and mood changes which may occur with Depo-Provera. Patient's most recent Pap was in June 2022 and was normal. All of her Paps prior to that are also normal. TSH, FSH, another blood work have been done recently in her normal. Recent pelvic ultrasound performed 08/14/2023 shows: FINDINGS: Uterus: Uterus is anteverted and normal in size at 9.1 x 5.0 x 5.3 cm. The myometrium is homogeneous. The endometrium measures 10 mm combined thickness. Vascularity within the endometrium appears mildly increased. Ovaries: Right ovary is not visualized. No right adnexal mass. The left ovary measures 2.6 x 1.3 x 2.1 cm, with a calculated ovarian volume of 3.9 cc. The ovaries have a normal sonographic appearance. Less than 12 follicles can be seen in the left ovary. No adnexal masses are seen. Other: No pathologic free abdominal or pelvic fluid IMPRESSION: 1. Nonspecific increased vascularity within the endometrium. No definite source for vaginal bleeding identified. 2. Right ovary is not visualized. Endometrial sampling performed 08/23/2023 showed only proliferative endometrium with no atypia, hyperplasia, or neoplasia noted. After consideration of all options, patient has decided to proceed with total laparoscopic hysterectomy with bilateral salpingectomy and presents today for her scheduled surgery. Surgeon: Fransico Garcia Executive Director: Nava Dunaway Anesthesia Type: General Operative Notes Findings: The uterus is 8 weeks in size and global void. It is also boggy in clinically has changes most likely consistent with adenomyosis. Both fallopian tubes appeared normal as do both ovaries. There were no areas of endometriosis or scarring in either the anterior or posterior cul-de-sac. The remainder of the abdomen is normal to laparoscopic inspection. Closure Type: primary Specimen(s): left tube, right tube and uterus Applied: catheter Estimated blood loss (mL): 150 Blood products transfused: none Procedure in detail: With the patient in modified dorsal lithotomy position preparations were made by prepping and draping the patient in usual manner for vaginal surgery and insertion of Navarro catheter. A pre-surgical time-out was then taken in accordance with [facility] [place] policy. A bivalve speculum was then placed in the vagina and the cervix visualized. The anterior lip of the cervix was then grasped with a single-tooth tenaculum. The uterus was sounded to [8 cm, the endocervical canal dilated slightly, and a VCare uterine manipulator with a smal colpotomy cup was placed. The umbilicus was then infiltrated with 0.5% Marcaine with epinephrine. A 1 cm umbilical incision was made transversely and a Veress needle was used to insufflate the abdominal cavity with carbon dioxide. Once the abdomen was appropriately insufflated, a 5 mm trocar and sleeve were then placed through the umbilical incision. The scope was placed through the trocar and the initial assessment of the intra-abdominal contents carried out. A 2nd and 3rd 5 mm port was then placed 1st in the right mid quadrant from then the left mid quadrant by infiltration of the skin and subcutaneous tissues, a 1 cm transverse incision and insertion of the 5 mm bladeless port. Using a 3 puncture technique, the abdomen and pelvis were inspected laparoscopy and photographically documented. Uterus is mobilized with the VCare manipulator and attention turned to the left adnexa. The distal tube was then grasped and the fimbria varicose divided after coagulation with the PowerSeal device. The dissection was then carried out toward the cornua and the fallopian tube amputated. The tube was removed through a 5 mm port and dissection was then carried down using the PowerSeal device so as to divide the utero-ovarian ligament and the round ligament with blunt and sharp dissection of the broad down to the level of the uterine artery. The uterine artery was then skeletonized after development of a bladder flap, coagulated, and divided. Once hemostasis was assured on the left side attention was turned to the right and the tube, utero-ovarian ligament, round ligament, and broad ligament were dissected in a fashion exactly the same as it had been on the left. The right uterine artery was then visualized after skeletonization and coagulated and divided. The uterus was seen to xu after coagulation of both your arteries and the cup was identified through the vaginal muscularis at its insertion with the body of the cervix. Circumferential excision of the vaginal cup was accomplished without difficulty using monopolar current and the uterus mobilized. The uterus was then removed through the vagina. A Stratafix suture was then introduced into the pelvis through the vagina using a ring forcep and an obturating pack was placed in the vagina for maintaining the pneumoperitoneum. A 4th 5 mm trocar and sleeve was introduced deep in the right lower quadrant and the vaginal cuff was closed with the Stratafix PDS side to side in 2 layers. Hemostasis and tissue apposition was excellent at the completion of the cuff closure and the pelvis was inspected with no other abnormality seen. The pelvis was then thoroughly irrigated and inspected a final time with ureter seemed to be peristalsing on both sides. He vaginal cuff closed [id number]-ldxy with a series of 0 Vicryl abyxnl-sz-gpecx stitches. 20 cc ropivacaine were instilled in the pelvis. With complete hemostasis assured, the pneumoperitoneum was vented and the ports removed. All of the 5 mm ports were then closed with 4-0 Monocryl on the skin using inverted interrupted sutures. Skin glue was placed and after the glue was dried, an appropriate dressing was applied. The case was then terminated, the patient awakened, and then transferred to PACU after having tolerated the procedure well. Complications: none Post-operative Condition: stable Disposition: PACU Plan for aftercare: Recovery in ambulatory surgery in discharge home later today if pain is under control and she is tolerating oral intake well.
[2023-10-05] MEDS: LACTATED RINGERS 1,000 ML 100 ML IV (13:45)
[2023-10-05] MEDS: ACETAMINOPHEN 325 MG TABLET 650 MG PO ×2 (16:02→22:40)
[2023-10-05] MEDS: KETOROLAC 30 MG/ML VIAL IV (17:13)
--- NOTE | 2023-10-05 18:32 | PC.NURSE ---
Day shift: Spoke with MD Garcia on the phone this evening. Told him that patient's pain is well controlled with oral pain meds, no nausea, and patient ambulating independently in the room. He ok'ed removing Navarro catheter. This RN removed Navarro at 1830, patient tolerated well. Minimal bleeding on peripad. Dressings on abdomen CDI. Will continue to monitor.
[2023-10-06] MEDS: KETOROLAC 30 MG/ML VIAL IV ×3 (00:07→11:37)
[2023-10-06 04:00] VITALS: BP 105/64; PULSE 91; RESP 16; TEMP 36; O2SAT 96
[2023-10-06 05:09] LABS: Add Manual Diff / Slide Review NO; Basophils Absolute Auto 100 /uL (0-100); Basophils Percent Auto 0.8 % (0-2); Eosinophils Absolute Auto 0 /uL (0-450); Eosinophils Percent Auto 0.1 % (2-4); Hematocrit 35.2 % (36-46); Hemoglobin 11.5 g/dL (12.0-16.0); Lymphocytes Absolute Auto 2400 /uL (1100-4500); Lymphocytes Percent Auto 14.8 % (25-40); Mean Corpuscular HGB Conc 32.8 % (30-36); Mean Corpuscular Hemoglobin 27.7 PG (26-34); Mean Corpuscular Volume 84.4 fL (80-100); Monocytes Absolute Auto 900 /uL (0-900); Monocytes Percent Auto 5.6 % (3-14); Neutrophils Absolute Auto 12700 /uL (1500-7000); Neutrophils Percent Auto 78.7 % (50-75); Platelet Count 279 X10^3/uL (150-400); Red Blood Cell Count 4.17 X10^6/uL (4.0-5.2); Red Cell Distribution Width 13.8 % (11.6-14.8); White Blood Cell Count 16.2 X10^3/uL (4.5-11.0)
[2023-10-06] MEDS: DOCUSATE 100 MG CAPSULE 200 MG PO (08:04)
[2023-10-06] MEDS: ACETAMINOPHEN 325 MG TABLET 650 MG PO (08:04)
[2023-10-06 08:25] VITALS: BP 117/84; PULSE 82; RESP 18; TEMP 36.4; O2SAT 94
--- NOTE | 2023-10-06 09:33 | P.DS_ITS ---
History of Present Illness History of Present Illness Date Patient Seen: 10/06/23 Time Patient Seen: 09:33 Chief complaint: Lap Total Hysterectomy w/ramsey salpingectomy *OPB* Narrative: Anna is a 37-year-old G0, LMP from February 2023 until 08/19, who presents with greater than 15 year history of progressively severe menometrorrhagia. Patient is nulligravid by choice and does not wish to have children now or in the future. She experienced menarche at age 13-14 and initially had regular predictable menses while she was in high school. Her weight at that time was 105 lb. When she went to college and afterwards she began to gain weight and her periods began to become unpredictable and chaotic. Treatment with oral contraceptives was of no benefit. Patient has been offered IUD in the past and declined because of complications that her sister had with an IUD. She is similarly not interested in Depo-Provera because of concerns regarding weight gain and mood changes which may occur with Depo-Provera. Patient's most recent Pap was in June 2022 and was normal. All of her Paps prior to that are also normal. TSH, FSH, another blood work have been done recently in her normal. Recent pelvic ultrasound performed 08/14/2023 shows: FINDINGS: Uterus: Uterus is anteverted and normal in size at 9.1 x 5.0 x 5.3 cm. The myometrium is homogeneous. The endometrium measures 10 mm combined thickness. Vascularity within the endometrium appears mildly increased. Ovaries: Right ovary is not visualized. No right adnexal mass. The left ovary measures 2.6 x 1.3 x 2.1 cm, with a calculated ovarian volume of 3.9 cc. The ovaries have a normal sonographic appearance. Less than 12 follicles can be seen in the left ovary. No adnexal masses are seen. Other: No pathologic free abdominal or pelvic fluid IMPRESSION: 1. Nonspecific increased vascularity within the endometrium. No definite source for vaginal bleeding identified. 2. Right ovary is not visualized. Endometrial sampling performed 08/23/2023 showed only proliferative endometrium with no atypia, hyperplasia, or neoplasia noted. After consideration of all options, patient has decided to proceed with total laparoscopic hysterectomy with bilateral salpingectomy and presents now for her scheduled surgery. Discharge Providers Provider Date of admission: 10/05/2023 Discharge Date: 10/06/23 Primary care physician: GENIE Mo Discharge provider: Fransico Garcia MD Summary Hospital Course Discharge Diagnosis: Menometrorrhagia Anemia due to chronic blood loss Hospital Course: The patient was admitted on 10/05/2023 and underwent an uneventful total laparoscopic hysterectomy with bilateral salpingectomy. Full details of the procedure well summarized on my operative note of that date. Following surgery the patient has done extremely well with prompt return of bowel and bladder function, she is ambulating independently, tolerating a regular diet, and her pain is well relieved with oral pain medications. She will be discharged at this time in an afebrile normotensive condition to home after counseling regarding precautionary symptoms, limitations of activity, medications, plans for follow-up which will be in 2 weeks. Patient will be discharged on oxycodone 5 mg every 6 hours as needed for pain and Cipro 500 mg p.o. b.i.d. x5 days for UTI prophylaxis following catheterization. Status at Discharge Cognitive/behavioral status at discharge: oriented Functional status at discharge: independent ambulation Overall status at discharge: patient is progressing back to baseline Time Spent with Patient Time spent: Less than 30 minutes Exam Vital Signs (past 8 hours): - 10/06/23 04:00 10/06/23 08:25 Temperature 96.8 F L 97.5 F L Pulse Rate 91 H 82 Respiratory Rate 16 18 Blood Pressure 105/64 117/84 Pulse Oximetry 96 94 Oxygen Flow Rate 0 0 Oxygen Delivery Method Room Air Oxygen Flow Rate 0 Const General: cooperative and comfortable Nutritional Appearance: average body habitus Orientation: alert and oriented x3 HENMT Head: normal to inspection, atraumatic and abrasion Ears: hearing grossly normal bilaterally Face and sinus: face symmetric Eyes General: appearance normal, both eyes and all related structures Conjunctivae: conjunctivae normal Sclera: sclerae normal EOM: EOM intact bilaterally Neck Neck: normal visual inspection Resp Effort & Inspection: normal respiratory effort and able to speak in complete sentences Auscultation: clear to auscultation bilaterally Cardio Rate: regular rate Rhythm: regular rhythm Heart Sounds: S1 normal, S2 normal and no murmurs GI Inspection: normal to inspection and incision (Surgical dressings clean and dry) Palpation: soft, no hepatosplenomegaly and tender (Mild, diffuse postsurgical tenderness) External Female Exam: other (No significant bleeding noted) Extrem General: no calf tenderness Psych Appearance: grossly normal Mental Status: mental status grossly normal Speech and Movement: speech and movement normal Mood: congruent mood Affect: normal affect Attitude: cooperative Thought Process: normal Thought Content: normal Judgment: judgment good Objective Labs 10/06/23 04:15 Labs: Laboratory Results - last 24 hr 10/05/23 10/06/23 09:18 04:15 WBC 7.5 16.2 H D RBC 4.58 4.17 Hgb 12.9 11.5 L Hct 38.7 35.2 L MCV 84.6 84.4 MCH 28.1 27.7 MCHC 33.3 32.8 RDW 14.3 13.8 Plt Count 272 279 Neut % (Auto) 67.3 78.7 H Lymph % (Auto) 24.2 L 14.8 L [place] % (Auto) 6.2 5.6 Eos % (Auto) 1.4 L 0.1 L Baso % (Auto) 0.9 0.8 Neut # (Auto) 5100 15280 H Lymph # (Auto) 1800 2400 [place] # (Auto) 500 900 Eos # (Auto) 100 0 Baso # (Auto) 100 100 Blood Type A Negative Antibody Screen Negative [facility] Social History household members: none Smoking Status: Never smoker alcohol intake: current Discharge Assessment & Plan Assessment and Plan Assessment: Menometrorrhagia Anemia due to chronic menstrual blood losses Status post total laparoscopic hysterectomy with bilateral salpingectomy Plan of Treatment: Routine postoperative care with follow-up planned for 2 weeks postop. Discharge Plan Discharge Plan Patient Disposition: Home Provider Discharge Comment: Please review the written instructions you received when you were discharged from the hospital. Your follow-up appointment will be scheduled for 2 weeks after your surgery and I look forward to seeing you then. If however in the meanwhile you have any issues, concerns, or questions, please contact me either through the office phone at [phone], or via the patient portal. Discharge orders & Medications Discharge Orders: Discharge (Order); Ordered 10/06/23 Ordered By: Fransico Garcia Prescriptions: New oxycodone 5 mg tablet 5 mg PO Q6H PRN (Reason: pain) Qty: 12 0RF ciprofloxacin HCl 500 mg tablet 500 mg PO BID 5 Days Qty: 10 0RF Follow up/Referrals: Anil Brooks ARNP [Primary Care Provider] - Fransico Garcia MD [Physician] - Diet/Activity/Treatments Diet: Diet as Tolerated Activity: As tolerated Other treatments: Ivtv-eif-zohcjwa Tylenol and/or ibuprofen may be used for additional pain relief. Pfqp-mfv-jrccmin stool softeners and/or MiraLax may be used as needed for constipation. Skin/Wound/Dressing Care Dressing: Dressings should be removed on the morning 10/07/2023. Visit Report/Discharge Packet Instructions: DI for Hysterectomy, DI for Laparoscopy, DI for Prescription Opioid Use Print Language: Mohawk Discharge Data Primary Care Provider: Anil Brooks Attending Provider: Fransico Garcia Quality VTE Deep Vein Thrombosis/Pulmonary Embolism Present on Admission: No
--- NOTE | 2023-10-06 12:03 | PC.NURSE ---
Discharge: Pt feels ready for d/c to home. She has been up and walking around in room. Gait is steady. Tolerates diet w/out problems. Minimal use of pain med regime, no oxy taken but has been taking the toradol. She is aware no ibuprofen until after 5:30pm tonight. Voids w/out diff. Dressings are intact and dry. Scant vag flow, no clots. Discussed if she has increased bleeding or clots she needs to be seen. Pt's mother is going to be with her for the next two weeks to help care for her. Discharge packet given and reviewed. Questions answered. Pt d/c to home via auto with her mother. Voiced no concerns at time of discharge.
== END 2023-10-06 12:00 | disposition home or self-care (01) ==
LOC: OR 08:00 → AC 10:42
PROVIDERS: Student in an Organized Health Care Education/Training Program; PCP Registered Nurse Diabetes Educator; Referring Provider Obstetrics & Gynecology; Visit Provider Obstetrics & Gynecology
PROC: 0UT94ZZ Resection of Uterus, Percutaneous Endoscopic Approach (ICD-10-PCS; CPT 58571; principal; 2023-10-05 09:45)
DX: N92.1 Excessive and frequent menstruation with irregular cycle (principal); D50.9 Iron deficiency anemia, unspecified
CPT/HCPCS: 58571; 36415; 85025; 86850; 86900; 86901; J0171; J0690; J1100; J1170; J1885; J2250; J2405; J2704; J2795; J3010